=== PATIENT | female | born 1935 | race Caucasian/White ===

== ENCOUNTER 2021-03-10 12:53 | Outpatient (CLI) | payer MEDICARE, SELFPAY ==
--- NOTE | ~2021-03-10 | XR_ITS ---
EXAMINATION: XR knee LT min 4V DATE: 03/10/2021 14:03 INDICATION: Rheumatoid arthritis with rheumatoid factor of multiple sites. TECHNIQUE: 4 views of left knee standing were obtained. COMPARISON: None. FINDINGS: Bone alignment is normal. No fracture. There is moderate osteoarthritis of medial compartme nt and mild osteoarthritis of patellofemoral and lateral compartments. No knee joint effusion. IMPRESSION: 1. Moderate left knee osteoarthritis. Reviewed, dictated and finalized at location A.
--- NOTE | ~2021-03-10 | XR_ITS ---
XR foot RT standing 2V DATE: 03/10/2021 14:03 INDICATION: Rheumatoid arthritis TECHNIQUE: Standing AP and lateral views COMPARISON: None FINDINGS: There is prominent plantar and posterior calcaneal enthesopathy. There is hallux valgus and bunion deformity. There is prominent osteoarthritic change at the first metatarsophalangeal joint. No fracture, dislocation, periosteal reaction or bone destruction. IMPRESSION: Hallux valgus and bunion deformity Osteoarthritis at first metatarsophalangeal joint Prominent plantar and posterior calcaneal enthesopathy Reviewed, dictated and finalized at location B.
--- NOTE | ~2021-03-10 | XR_ITS ---
XR hand BI arthritis min 3V DATE: 03/10/2021 14:03 INDICATION: Rheumatoid arthritis TECHNIQUE: 4 views of each hand COMPARISON: None FINDINGS: There is diffuse osteopenia. There is polyarticular osteoarthritis of the right hand including mild osteoarthritic arthritis at th e radiocarpal, triscaphe, first and second metacarpophalangeal and multiple interphalangeal joints. There is polyarticular osteoarthritis of the left hand as well, including radiocarpal, triscaphe, fir st carpometacarpal, first and second metacarpophalangeal and multiple interphalangeal joints. No fracture or dislocation, periosteal reaction or bone destruction is detected. No erosive change is evident. No chondrocalcinosis. IMPRESSION: Osteopenia Polyarticular osteoarthritis Reviewed, dictated and finalized at location B.
--- NOTE | ~2021-03-10 | XR_ITS ---
XR knee RT min 4V DATE: 03/10/2021 14:03 INDICATION: Rheumatoid arthritis TECHNIQUE: 4 views COMPARISON: None FINDINGS: There is moderately prominent tricompartment osteoarthritis, gouty joint space narrowing an d periarticular spurring. Superior pole patellar enthesopathy at quadriceps tendon insertion. No fracture, dislocation, periosteal reaction or bone destruction. No radiopaque intra-articular loos e body or chondrocalcinosis. Diffuse osteopenia IMPRESSION: Tricompartment osteoarthritis Reviewed, dictated and finalized at location B.
--- NOTE | ~2021-03-10 | XR_ITS ---
EXAMINATION: XR foot LT standing 2V DATE: 03/10/2021 14:03 INDICATION: Rheumatoid arthritis with rheumatoid factor of multiple sites TECHNIQUE: Dorsoplantar and lateral views of the left foot were obtained. COMPARISON: None. FINDINGS: 30 degrees hallux valgus. Suggestion of prior realignment osteotomy at the neck of the first metatars al which is fixed with 3 pins. The second middle phalanx is not visualized which could be due to eith er prior resection or due to arthrodesis across the proximal interphalangeal joint. Polyarticular ost eoarthritis, moderate severity at the first metatarsophalangeal joint and mild at multiple tarsal met atarsal and interphalangeal joints. No erosions to suggest an inflammatory arthritis. Moderate-sized plantar calcaneal spur. Diffuse osteopenia. IMPRESSION: 1. Mild to moderate osteoarthritis in the left fore and midfoot. 2. Postoperative changes at the first metatarsal and the second toe as detailed above. Reviewed, dictated and finalized at location A.
--- NOTE | ~2021-03-10 | XR_ITS ---
XR lumbar spine min 4V DATE: 03/10/2021 14:03 INDICATION: Rheumatoid arthritis TECHNIQUE: AP, lateral, coned lateral lumbosacral and bilateral oblique views COMPARISON: None FINDINGS: Diffuse osteopenia. Minimal levoscoliosis of the lumbar spine. No fracture or bone destruction is evident. The included lower thoracic and lumbar pedicles are intac t. There is multilevel degenerative disc disease, most prominent at L2-3 and L5-S1, moderate at the christopher ining lumbar interspaces. There is degenerative change at the apophyseal joints throughout the lumbar spine, especially at L4-5 and L5-S1 bilaterally. No spondylolysis or spondylolisthesis, with the exception of slight grade 1 a nterolisthesis at L4-5. The sacroiliac joints are unremarkable other than degenerative change. Status post bilateral total hip arthroplasty. Abdominal aortic calcification, without evidence of aneurysm. IMPRESSION: Multilevel degenerative disc disease, most pronounced at L2-3 and L5-S1 Minimal anterolisthesis at L4-5 due to degenerative change at the apophyseal joints Osteopenia Bilateral total hip arthroplasty Reviewed, dictated and finalized at location B. IMPRESSION: Multilevel degenerative disc disease, most pronounced at L2-3 and L 5-S1 Minimal anterolisthesis at L4-5 due to degenerative change at the apophyseal luis enrique ints Osteopenia Bilateral total hip arthroplasty
[2021-03-10 14:32] LABS: Hemoglobin 10.4 g/dL (12.0-15.0); Mean Corpuscular HGB Conc 32.5 g/dl (32-36); Mean Corpuscular Volume 95.5 fl (80-100); Mean Platelet Volume 9.9 fl (7.4-10.4); Platelet Count Result 274 k/mm3 (150-375); Red Blood Count 3.35 M/mm3 (4.2-5.4); Red Cell Distribution Width 16.2 % (11.5-14.5)
[2021-03-10 14:46] LABS: Alanine Aminotransferase 13 U/L (4-35); Albumin Level 3.7 g/dL (3.5-5.1); Alkaline Phosphatase 60 U/L (38-126); Anion Gap 8 mmol/L (8-16); Aspartate Amino Transferase 25 U/L (14-36); Bilirubin,Total 0.6 mg/dL (0.2-1.3); Blood Urea Nitrogen 27 mg/dL (7-17); CRP 2.1 mg/dL (<1.0); Calcium 9.5 mg/dL (8.4-10.2); Carbon Dioxide 27 mmol/L (22-30); Chloride 101 mmol/L (98-107); Estimated Glomerular Filt Rate 36; Glucose 98 mg/dL (65-105); Potassium 4.6 mmol/L (3.4-5.0); Sodium 136 mmol/L (137-145)
[2021-03-10 15:07] LABS: Add Urine Microscopic? YES; Appearance Urine Cloudy (Clear); Bacteria Urine Trace /hpf; Bilirubin Urine Negative (Negative); Blood Urine Negative (Negative); Color Urine Yellow (Yellow); Glucose Urine UA Negative (Negative); Ketones Urine Negative (Negative); Leukocyte Esterase Ur 2+ LEU/UL (Negative); Nitrate Urine Positive (Negative); Protein Urine Negative (Negative); RBC Urine 0-2 /hpf (0-2); Squamous Epithelial Cell Urine Occasional /hpf (Few); Urobilinogen Urine Negative mg/dL (<2.0); WBC Urine 16-20 /hpf
[2021-03-10 15:10] LABS: Erythrocyte Sedimentation Rate 114 mm/hr (0-20)
[2021-03-10 15:39] LABS: Hepatitis B Surface Antigen Negative (Negative)
[2021-03-10 15:56] LABS: Hepatitis B Surface Anti Res Negative; Hepatitis C Virus Antibody Negative (Negative)
[2021-03-16 00:28] LABS: NIL 0.02 IU/mL; Quantiferon TB Plus, 1T NEGATIVE (NEGATIVE)
== END 2021-03-10 12:54 | disposition home or self-care (01) ==
PROVIDERS: PCP Family Medicine; Visit Provider Internal Medicine
DX: M05.79 Rheumatoid arthritis with rheumatoid factor of multiple sites without organ or systems involvement (principal); M19.90 Unspecified osteoarthritis, unspecified site; Z11.59 Encounter for screening for other viral diseases; M89.49 Other hypertrophic osteoarthropathy, multiple sites; M85.89 Other specified disorders of bone density and structure, multiple sites; Z98.890 Other specified postprocedural states; M51.36 Other intervertebral disc degeneration, lumbar region; Z96.643 Presence of artificial hip joint, bilateral; M20.11 Hallux valgus (acquired), right foot; M21.611 Bunion of right foot; M77.31 Calcaneal spur, right foot
CPT/HCPCS: 36415; 72110; 73130; 73564; 73620; 80053; 81001; 85027; 85652; 86038; 86039; 86140; 86480; 86706; 86803; 87077; 87086; 87088; 87186; 87340